=== PATIENT | female | born 1935 | race Caucasian/White ===

== ENCOUNTER → 2016-07-24 | Outpatient (CLI) | payer OTHER, MEDICARE ==
[~2016-07-24] MED LIST: ACYCLOVIR 800800 M1; ADULT ONE DAI200 MCG PO; AMBIEN 5 MG TABL5 M1 PO; ASPIR 8181 MG PO; AVAPRO 150 MG150 MG PO; BYSTOLIC10 MG PO; CELEXA 20 MG TA20 M1 PO; CELEXA20 MG PO; CHLORTHALIDONE25 MG PO; CO Q-10100 MG PO; CO Q-10200 MG PO; ELDERBERRY PO; GABAPENTIN100 MG PO; HYDROCODONE-AP1 EAC6 PO; IBUPROFEN 800800 M1 PO; MOBIC15 MG PO; NEURONTIN100 MG PO; NORCO 7.5-3251 EACH; NORVASC2.5 M1 PO; PAIN RELIEVER500 M3 PO; PEPCID20 MG PO; QUINAPRIL 20 MG20 MG PO; SENNA LAXATIVE25 MG PO; SLOW-MAG64 M1 PO; TUMS PO; VITAMIN D32000 UNI1 PO; VITAMIN D35000 UNIT PO; ZETIA10 MG PO
== END ==
LOC: ULTRA 17:27
DX: M79.89 Other specified soft tissue disorders (principal); M79.605 Pain in left leg; M71.20 Synovial cyst of popliteal space [Baker], unspecified knee

== ENCOUNTER → 2016-08-03 | Outpatient (CLI) | payer OTHER, MEDICARE | LOC: MRI | DX: M22.42 Chondromalacia patellae, left knee (principal); M25.562 Pain in left knee; M71.20 Synovial cyst of popliteal space [Baker], unspecified knee; M25.40 Effusion, unspecified joint ==

== ENCOUNTER → 2016-11-23 | Outpatient (CLI) | payer OTHER, MEDICARE | LOC: MRI 12:28 | DX: M41.86 Other forms of scoliosis, lumbar region (principal); M47.896 Other spondylosis, lumbar region; M47.894 Other spondylosis, thoracic region; M54.5 Low back pain ==

== ENCOUNTER → 2016-12-11 | Outpatient (CLI) | payer OTHER, MEDICARE | LOC: MRI 09:56 | DX: M48.03 Spinal stenosis, cervicothoracic region (principal); M47.893 Other spondylosis, cervicothoracic region ==